=== PATIENT | male | born 1950 | race Native Hawaiian/Other Pacific Islander ===

== ENCOUNTER → 2020-07-22 | Outpatient (CLI) | payer OTHER ==
[2020-07-22 21:03] LABS: PLATELET COUNT 270 K/uL (142-355)
[2020-07-23 00:10] LABS: POTASSIUM 4.3 mmol/L (3.6-5.2)
== END ==
LOC: LAB 20:25
PROVIDERS: ATTEND Nurse Practitioner Family
DX: Z00.00 Encounter for general adult medical examination without abnormal findings (principal); Z79.899 Other long term (current) drug therapy; E78.49 Other hyperlipidemia; I10 Essential (primary) hypertension; R53.83 Other fatigue; R53.81 Other malaise
CPT/HCPCS: 80053; 80061; 82306; 82607; 83036; 84153; 84403; 84439; 84443; 85027